=== PATIENT | male | born 1990 | race Caucasian/White ===

== ENCOUNTER 2020-01-24 10:09 | Inpatient (IN) | payer OTHER ==
[2020-01-24 10:59] VITALS: BMI 19.8
--- NOTE | 2020-01-24 11:08 | BHS.RME ---
Substance Use & Tx History - Substance Use History Benzodiazepines Substance amount: 10mg Frequency of use: Daily Substance route: Oral Date of Last Use: 01/22/20 Heroin Substance amount: 20 bags Frequency of use: Daily Substance route: Injection (ex: intravenous or skin popping) Date of Last Use: 01/24/20 - Last Treatment Date of last treatment: 2014 at the [facility] Where was last treatment: Detox Physical/Psych/Mental Status - Behavior General Behavior: Increased activity (restlessness, agitation) Eye Contact: Decreased Other Behaviors: Mannerisms - Cooperativeness Cooperativeness: Cooperative - Thinking Thought Processes: Tight, Logical Thought content: Future oriented - Physical Health Problems Is patient presently having any pain?: Yes Does patient presently have any injuries (include location): No Does patient currently have a fever: No COWS - Scale Resting Pulse: 0= [place] 80 or Below Sweatin= Chills/Flushing Restless Observation: 3= Extraneous Movement Pupil Size: 1= Pupils >than Normal Bone or Joint Aches: 2= Severe Diffuse Aches Runny Nose/ Eye Tearin= Runny Nose/Eyes GI Upset > 30mins: 2= Nausea/Diarrhea Tremor Observation: 4= Gross Tremor/Twitching Yawning Observation: 1= 1-2x During Session Anxiety or Irritability: 2=Irritable/Anxious Goose Flesh Skin: 3=Piloerection COWS Score: 21 CIWA Nausea/Vomitin Muscle Tremors: 2 Anxiety: 3 Agitation: 3 Paroxysmal Sweats: 3 Orientation: 0-Oriented Tacttile Disturbances: 1-Very Mild Itch/Numbness Auditory Disturbances: 1-Very Mild Visual Disturbances: 1-Very Mild Sensitivity Headache: 2-Mild CIWA-Ar Total Score: 18 Treatment Recommendation - Level of Care Level of Care: Opioid Treatment Program (OTP)
[2020-01-24] MEDS ORDERED: MENTHOL/PHENOL 1 EACH UD MM PRN (11:16)
[2020-01-24] MEDS ORDERED: BISMUTH SUBSALICYLATE 524 MG/30 ML UD PO PRN (11:16)
[2020-01-24] MEDS ORDERED: MAG HYDROX/AL HYDROX/SIMETH 30 ML UNIT-DOSE CUP PO PRN (11:16)
[2020-01-24] MEDS ORDERED: IBUPROFEN 400 MG TABLET (FP) PO PRN (11:16)
[2020-01-24] MEDS ORDERED: NALOXONE HCL 0.4 MG/ML VIAL IM PRN (11:16)
[2020-01-24] MEDS ORDERED: ACETAMINOPHEN 325 MG TABLET (FP) PO PRN ×2 (11:16)
[2020-01-24] MEDS ORDERED: cloNIDine HCL 0.1 MG TABLET PO PRN (11:16)
[2020-01-24] MEDS ORDERED: METHADONE HCL 10 MG TABLET (FOR DETOX USE ONLY) PO ONE (11:16)
[2020-01-24] MEDS ORDERED: MAGNESIUM CITRATE 300 ML BOTTLE PO PRN (11:16)
[2020-01-24] MEDS ORDERED: MAGNESIUM HYDROX 2400MG/30ML ORAL SUSPENSION 30 ML CUP PO PRN (11:16)
[2020-01-24] MEDS ORDERED: diazePAM 5 MG TABLET PO ONE (11:16)
--- NOTE | 2020-01-24 11:16 | HP ---
COWS - Scale Resting Pulse: 0= [place] 80 or Below Sweatin= Chills/Flushing Restless Observation: 3= Extraneous Movement Pupil Size: 1= Pupils >than Normal Bone or Joint Aches: 2= Severe Diffuse Aches Runny Nose/ Eye Tearin= Runny Nose/Eyes GI Upset > 30mins: 2= Nausea/Diarrhea Tremor Observation: 4= Gross Tremor/Twitching Yawning Observation: 1= 1-2x During Session Anxiety or Irritability: 2=Irritable/Anxious Goose Flesh Skin: 3=Piloerection COWS Score: 21 CIWA Score Nausea/Vomitin Muscle Tremors: 2 Anxiety: 3 Agitation: 3 Paroxysmal Sweats: 3 Orientation: 0-Oriented Tacttile Disturbances: 1-Very Mild Itch/Numbness Auditory Disturbances: 1-Very Mild Visual Disturbances: 1-Very Mild Sensitivity Headache: 2-Mild CIWA-Ar Total Score: 18 - Admission Criteria [facility]ASAS Guidelines: Admission for Medically Managed Detox: Requires at least one of the followin. CIWA greater than 12 2. Seizures within the past 24 hours 3. Delirium tremens within the past 24 hours 4. Hallucinations within the past 24 hours 5. Acute intervention needed for co occurring medical disorder 6. Acute intervention needed for co occurring psychiatric disorder 7. Severe withdrawal that cannot be handled at a lower level of care (continued vomiting, continued diarrhea, abnormal vital signs) requiring intravenous medication and/or fluids 8. Patient presents the following: CIWA greater than 12 Admission Criteria Met: Admission criteria met Admitting History and Physical - Smoking History Smoking history: Current every day smoker Have you smoked in the past 12 months: Yes Aproximately how many cigarettes per day: 10 Admission ROS [facility] - [facility] Chief Complaint: I am here to better my life, to get off drugs and to be a better member of society Allergies/Adverse Reactions: Allergies Allergy/AdvReac Type Severity Reaction Status Date / Time baclofen Allergy Severe Hives Verified 01/24/20 10:54 naltrexone Allergy Severe Hives Verified 01/24/20 10:54 History of Present Illness: 29 year old man with heroin and benzo use presents for detox. This is his first time at [facility].He denies OD. Exam Limitations: No Limitations - Ebola screening Have you traveled outside of the country in the last 21 days: No Have you had contact with anyone from an Ebola affected area: No Have you been sick,other than usual withdrawal symptoms: No Do you have a fever: No - Review of Systems Constitutional: Chills, Loss of Appetite, Changes in sleep, Unintentional Wgt. Loss EENT: reports: Nose Congestion Respiratory: reports: No Symptoms reported Cardiac: reports: No Symptoms Reported GI: reports: Nausea, Poor Appetite, Abdominal cramping : reports: No Symptoms Reported Musculoskeletal: reports: Joint Pain, Muscle Pain, Muscle Weakness Integumentary: reports: Flushing, Sweating Neuro: reports: Headache, Tremors Endocrine: reports: No Symptoms Reported Hematology: reports: No Symptoms Reported Psychiatric: reports: No Sypmtoms Reported Other Systems: Reviewed and Negative Patient History - Patient Medical History Hx Anemia: No Hx Asthma: No Hx Chronic Obstructive Pulmonary Disease (COPD): No Hx Cancer: No Hx Cardiac Disorders: No Hx Hypertension: No Hx Hypercholesterolemia: No Hx Pacemaker: No HX Cerebrovascular Accident: No Hx Seizures: No Hx Dementia: No Hx Diabetes: No Hx Gastrointestinal Disorders: No Hx Liver Disease: No Hx Genitourinary Disorders: No Hx Sexually Transmitted Disorders: No Hx Renal Disease (ESRD): No Hx Thyroid Disease: No Hx Human Immunodeficiency Virus (HIV): No Hx Hepatitis C: No Hx Depression: No Hx Suicide Attempt: No Hx Bipolar Disorder: No Hx Schizophrenia: No - Patient Surgical History Past Surgical History: No - PPD History Previous Implant?: Yes Documented Results: Negative w/o proof Implanted On Prior [facility] Admission?: No PPD to be Administered?: Yes - Smoking Cessation Smoking history: Current every day smoker Have you smoked in the past 12 months: Yes Aproximately how many cigarettes per day: 10 Hx Chewing Tobacco Use: No Initiated information on smoking cessation: Yes 'Breaking Loose' booklet given: 01/24/20 - Substances abused Heroin Substance route: Injection Frequency: Daily Amount used: 20 bags Age of first use: 19 Date of last use: 01/23/20 Alprazolam (Xanax) Substance route: Oral Frequency: Daily Amount used: 4mg and up Age of first use: 28 Date of last use: 01/22/20 Cocaine Substance route: Injection Frequency: 1-3 times last 30 days Amount used: 1/2 gram Age of first use: 26 Date of last use: 01/22/20 Marijuana/Hashish Substance route: Smoking Frequency: 1-3 times last 30 days Amount used: 2 puffs of joint Age of first use: 19 Date of last use: 01/22/20 Admission Physical Exam [facility] - Vital Signs Vital Signs: Vital Signs - 24 hr 01/24/20 10:54 Temperature 98.6 F Pulse Rate 71 Respiratory 20 Rate Blood Pressure 103/66 - Physical General Appearance: Yes: Mild Distress, Tremorous, Sweating HEENTM: Yes: Hearing grossly Normal, Normal ENT Inspection, Normocephalic, Normal Voice Respiratory: Yes: Chest Non-Tender, Lungs Clear, Normal Breath Sounds, No Respiratory Distress, No Accessory Muscle Use Neck: Yes: No masses,lesions,Nodules, Supple Breast: Yes: Breast Exam Deferred Cardiology: Yes: Regular Rhythm, Regular Rate Abdominal: Yes: Normal Bowel Sounds, Soft Genitourinary: Yes: Within Normal Limits Back: Yes: Normal Inspection Musculoskeletal: Yes: full range of Motion, Gait Steady, Pelvis Stable Extremities: Yes: Normal Capillary Refill, Non-Tender, Tremors Neurological: Yes: stock checkerer II-XII NML intact, Fully Oriented, Alert, Normal Mood/Affect, Normal Response Integumentary: Yes: Clammy, Rash (diffuse) Lymphatic: Yes: Within Normal Limits - Diagnostic (1) Benzodiazepine withdrawal Current Visit: Yes Status: Acute Qualifiers: Complication of substance-induced condition: uncomplicated Qualified Code(s): F13.230 - Sedative, hypnotic or anxiolytic dependence with withdrawal, uncomplicated (2) Opioid dependence with withdrawal Current Visit: Yes Status: Acute (3) Nicotine dependence with withdrawal Current Visit: Yes Status: Acute Qualifiers: Nicotine product type: cigarettes Qualified Code(s): F17.213 - Nicotine dependence, cigarettes, with withdrawal (4) Cocaine abuse Current Visit: Yes Status: Chronic (5) Marijuana abuse Current Visit: Yes Status: Chronic Cleared for Admission [facility] - Detox or Rehab [facility] Level of Care: Medically Managed Detox Regimen/Protocol: Methadone/Valium Claeared for Rehab Admission: No Breathalyzer - Breathalyzer Breathalyzer: 0 Urine Drug Screen - Test Device Lot number: [id number] Expiration date: 03/14/21 - Control Is test valid?: Yes - Results Drug screen NEGATIVE: No Urine drug screen results: THC-Marijuana, TRISHA-Cocaine, FEN-Fentanyl, MOP- Opiates, MTD-Methadone Inpatient Rehab Admission - Rehab Decision to Admit Inpatient rehab admission?: No
[2020-01-24] MEDS: diazePAM 5 MG TABLET PO SCH ×2 (14:43→21:04)
[2020-01-24] MEDS: diazePAM 5 MG TABLET PO PRN (16:58)
[2020-01-24] MEDS: METHOCARBAMOL 500 MG TABLET PO PRN (21:04)
[2020-01-24] MEDS: THIAMINE HCL 100 MG TABLET (FP) PO SCH (21:04)
[2020-01-24] MEDS: MELATONIN 5 MG TABLETS PO SCH (21:04)
[2020-01-25] MEDS: diazePAM 5 MG TABLET PO SCH ×3 (05:15→21:32)
[2020-01-25] MEDS ORDERED: METHADONE HCL 10 MG TABLET (FOR DETOX USE ONLY) ONE (09:02)
[2020-01-25] MEDS ORDERED: METHADONE HCL 5 MG TABLET (FOR DETOX USE ONLY) ONE (09:03)
--- NOTE | 2020-01-25 09:43 | EKG ---
Test Reason : Blood Pressure : / mmHG Vent. Rate : 064 BPM Atrial Rate : 064 BPM P-R Int : 138 ms QRS Dur : 090 ms QT Int : 402 ms P-R-T Axes : 000 088 080 degrees QTc Int : 414 ms NORMAL SINUS RHYTHM ST ELEVATION, CONSIDER EARLY REPOLARIZATION BORDERLINE ECG NO PREVIOUS ECGS AVAILABLE Confirmed by Sara Villar ([id number]) on 01/25/2020 9:42:54 AM Referred By: Confirmed By:Sara Villar
[2020-01-25] MEDS ORDERED: METHADONE (DETOX) 20 MG, METHADONE (DETOX) 5 MG PO ONE (10:00)
[2020-01-25] MEDS: PRENATAL VITAMINS W/ FOLIC ACID TABLET (FP) PO SCH (10:03)
[2020-01-25] MEDS: NICOTINE 7 MG/24 HOURS TOPICAL PATCH TD SCH (10:04)
[2020-01-25] MEDS: NICOTINE POLACRILEX 2 MG GUM BUC PRN ×2 (10:04→16:57)
--- NOTE | 2020-01-25 10:12 | PN ---
S CIWA - CIWA Score Nausea/Vomitin-Mild Nausea/No Vomiting Muscle Tremors: 4-Moderate,w/Arms Extend Anxiety: 4-Mod. Anxious/Guarded Agitation: 2 Paroxysmal Sweats: 1-Minimal Palms Moist Orientation: 0-Oriented Tacttile Disturbances: 0-None Auditory Disturbances: 0-None Visual Disturbances: 2-Mild Sensitivity Headache: 2-Mild CIWA-Ar Total Score: 16 BHS COWS - Scale Resting Pulse: 0= [place] 80 or Below Sweatin= Chills/Flushing Restless Observation: 0= Sits Still Pupil Size: 1= Pupils >than Normal Bone or Joint Aches: 2= Severe Diffuse Aches Runny Nose/ Eye Tearin= None GI Upset > 30mins: 2= Nausea/Diarrhea Tremor Observation of Outstretched Hands: 2= Slight Tremor Visible Yawning Observation: 0= None Anxiety or Irritability: 2=Irritable/Anxious Goose Flesh Skin: 3=Piloerection COWS Score: 13 S Progress Note (SOAP) Subjective: 29 years old male admitted on 01/24/20 for benzo and opiate withdrawal sx management treating with valium and methadone detox regiments feeling tired limited breakfast consumption ensure 120 ml po tid with meals resting in bed limited conversation with staff Objective: 01/25/20 10:14 Vital Signs - 24 hr 01/24/20 01/24/20 01/24/20 10:54 12:30 17:21 Temperature 98.6 F 97.1 F L 97.5 F L Pulse Rate 71 66 60 Respiratory 20 8 L 16 Rate Blood Pressure 103/66 101/64 109/70 O2 Sat by Pulse 97 99 Oximetry (%) 01/24/20 01/25/20 01/25/20 20:39 06:06 08:34 Temperature 97.4 F L 97.2 F L 96.9 F L Pulse Rate 61 53 L 64 Respiratory 18 18 18 Rate Blood Pressure 101/64 99/57 L 97/61 O2 Sat by Pulse 100 99 Oximetry (%) 01/25/20 10:15 cbc + camp cancelled reorder cbc + camp Assessment: 01/25/20 10:16 benzo and opiate withdrawal Plan: valium and methadone regiments
[2020-01-25] MEDS: diazePAM 5 MG TABLET PO PRN (16:57)
[2020-01-25] MEDS: MELATONIN 5 MG TABLETS PO SCH (21:32)
[2020-01-25] MEDS: THIAMINE HCL 100 MG TABLET (FP) PO SCH (21:32)
[2020-01-25] MEDS: METHOCARBAMOL 500 MG TABLET PO PRN (21:33)
[2020-01-26] MEDS: METHOCARBAMOL 500 MG TABLET PO PRN ×2 (05:14→10:14)
[2020-01-26] MEDS ORDERED: diazePAM 5 MG TABLET PO SCH (06:00)
[2020-01-26 09:13] VITALS: BP 111/67; PULSE 63; TEMP 97.1
--- NOTE | 2020-01-26 09:39 | PN ---
S CIWA - CIWA Score Nausea/Vomitin-Mild Nausea/No Vomiting Muscle Tremors: 2 Anxiety: 3 Agitation: 1-Slight > Activity Paroxysmal Sweats: 2 Orientation: 0-Oriented Tacttile Disturbances: 1-Very Mild Itch/Numbness Auditory Disturbances: 0-None Visual Disturbances: 0-None Headache: 2-Mild CIWA-Ar Total Score: 12 BHS COWS - Scale Resting Pulse: 0= [place] 80 or Below Sweatin= Chills/Flushing Restless Observation: 0= Sits Still Pupil Size: 1= Pupils >than Normal Bone or Joint Aches: 2= Severe Diffuse Aches Runny Nose/ Eye Tearin= Runny Nose/Eyes GI Upset > 30mins: 2= Nausea/Diarrhea Tremor Observation of Outstretched Hands: 0= None Yawning Observation: 2= >3x During Session Anxiety or Irritability: 2=Irritable/Anxious Goose Flesh Skin: 0=Smooth Skin COWS Score: 12 S Progress Note (SOAP) Subjective: 29 years old male admitted on 01/24/20 for benzo and opiate withdrawal sx management treating with valium and methadone detox regiments sweating reports diarrhea x 1 refuses imodium good skin turgor moist oral mucous membranes joint aches offer tylenal and motrin prn Objective: 01/26/20 09:39 Vital Signs - 24 hr 01/25/20 01/25/20 01/25/20 12:39 14:06 16:47 Temperature 98.7 F 98.0 F Pulse Rate 57 L 55 L Respiratory 18 18 Rate Blood Pressure 103/63 96/65 O2 Sat by Pulse 100 Oximetry (%) 01/25/20 01/26/20 01/26/20 20:50 05:42 08:52 Temperature 98.0 F 97.5 F L 97.1 F L Pulse Rate 61 62 63 Respiratory 18 18 18 Rate Blood Pressure 104/69 101/63 111/67 O2 Sat by Pulse 100 100 Oximetry (%) Laboratory Tests 01/24/20 11:25 COVID-19 ([facility]) Not detected 01/26/20 09:40 lab pending Assessment: 01/26/20 09:40 benzo and opiate withdrawal Plan: valium and methadone regiments
[2020-01-26] MEDS ORDERED: METHADONE HCL 10 MG TABLET (FOR DETOX USE ONLY) PO ONE (10:00)
[2020-01-26] MEDS: diazePAM 5 MG TABLET PO PRN (10:09)
[2020-01-26] MEDS: PRENATAL VITAMINS W/ FOLIC ACID TABLET (FP) PO SCH (10:10)
[2020-01-26] MEDS: NICOTINE 7 MG/24 HOURS TOPICAL PATCH TD SCH (10:11)
[2020-01-26 11:54] LABS: HEMATOCRIT 42.1 % (35.4-49); HEMOGLOBIN 14.1 GM/dL (11.7-16.9); MCH 28.4 pg (25.7-33.7); MCHC 33.5 g/dl (32.0-35.9); MEAN CELL VOLUME 84.9 fl (80-96); MEAN PLT VOLUME 7.7 fl (7.5-11.1); PLATELET COUNT 184 K/MM3 (134-434); RBC 4.95 M/mm3 (4.00-5.60); RDW 14.6 % (11.9-15.9); WHITE BLOOD COUNT 5.8 K/mm3 (4.0-10.0)
[2020-01-26 12:03] LABS: ALBUMIN 3.4 g/dl (3.4-5.0); BLOOD UREA NITROGEN 12.5 mg/dL (7-18); CALCIUM 9.1 mg/dL (8.5-10.1); CREATININE 0.8 mg/dL (0.55-1.3); POTASSIUM 4.1 mmol/L (3.5-5.1); TOT PROT 7.1 g/dl (6.4-8.2)
--- NOTE | 2020-01-26 12:14 | DS ---
[facility] Detox Discharge Summary Admission Date: 01/24/20 Discharge Date: 01/26/20 - History Present History: Opioid Dependence, Sedative Dependence Additional Comments: 29 years old male admitted on 01/24/20 for benzo and opiate withdrawal sx management treated with valium and methadone detox regiments received valium 5 mg around 5 am and 10 mg around 10 am today robaxin 500mg around 10 am and methadone 20mg around 10 am mr witt insists to leave the detox unit today that went [place] detox years ago and drug free x 5 years recent relapse first detox admission at [facility] mr witt prefers to terminate voluntary in patient detox at the [facility] and return to [place] detox where assisted mr witt remain drug free for "years" his friends is taking him to [place] new mr witt is alert oriented x 3 speech clearly coherently ambulating with steady gaits mr witt states that his friend is waiting for him downstairs and brining him to [place] detox or rehab where helping him maintain drug free mr witt understands that valium ended on 01/27/20 that returning to [place] for benzo detox cardiac s1s2 regular rate rhythm respiratory clear lung sounds bilaterally on auscultation extremities full range of motion Pertinent Past History: time for discharge 52 minutes treatment team met with the patient discuss the benefits of valium and methadone regiments completion mr witt prefers completing detox at [place] - Physical Exam Results Vital Signs: Vital Signs Temperature 97.1 F L 01/26/20 08:52 Pulse Rate 63 01/26/20 08:52 Respiratory Rate 18 01/26/20 08:52 Blood Pressure 111/67 01/26/20 08:52 O2 Sat by Pulse Oximetry (%) 100 01/26/20 05:42 Pertinent Admission Physical Exam Findings: benzo and opaite withdrawal Laboratory Tests 01/24/20 01/26/20 01/26/20 11:25 08:15 08:15 WBC 5.8 RBC 4.95 Hgb 14.1 Hct 42.1 MCV 84.9 MCH 28.4 MCHC 33.5 RDW 14.6 Plt Count 184 MPV 7.7 Sodium 140 Potassium 4.1 Chloride 108 H Carbon Dioxide 25 Anion Gap 7 L BUN 12.5 Creatinine 0.8 Est GFR (CKD-EPI)AfAm 137.96 Est GFR (CKD-EPI)NonAf 119.03 Random Glucose 86 Calcium 9.1 Total Bilirubin 1.0 AST 102 H ALT 186 H Alkaline Phosphatase 74 Total Protein 7.1 Albumin 3.4 COVID-19 ([facility]) Not detected ast elevation [facility] - Treatment Hospital Course: Detox Protocol Followed, Detoxed Safely, Responded well, Discha rged Condition Good, Rehab Referral Accepted Patient [facility] - Medication Discharge Medications: Ambulatory Orders Naloxone HCl [Narcan] 4 mg NS ASDIR PRN #1 spray 01/26/20 - Diagnosis (1) Benzodiazepine withdrawal Current Visit: Yes Status: Acute Qualifiers: Complication of substance-induced condition: uncomplicated Qualified Code(s): F13.230 - Sedative, hypnotic or anxiolytic dependence with withdrawal, uncomplicated (2) Nicotine dependence with withdrawal Current Visit: Yes Status: Acute Qualifiers: Nicotine product type: cigarettes Qualified Code(s): F17.213 - Nicotine dependence, cigarettes, with withdrawal (3) Opioid dependence with withdrawal Current Visit: Yes Status: Acute - AMA Did Patient Leave Against Medical Advice: No CIWA Score - CIWA Score Nausea/Vomitin-No Nausea/No Vomiting Muscle Tremors: 2 Anxiety: 3 Agitation: 1-Slight > Activity Paroxysmal Sweats: 1-Minimal Palms Moist Orientation: 0-Oriented Tacttile Disturbances: 1-Very Mild Itch/Numbness Auditory Disturbances: 0-None Visual Disturbances: 0-None Headache: 2-Mild CIWA-Ar Total Score: 10 COWS (PN) - Opiate Withdrawal Resting Pulse: 0= [place] 80 or Below Sweatin= Chills/Flushing Restless Observation: 0= Sits Still Pupil Size: 1= Pupils >than Normal Bone or Joint Aches: 1= Mild Discomfort Runny Nose/ Eye Tearin= Nasal Congestion GI Upset > 30mins: 1= Stomach Cramp Tremor Observation of Outstretched Hands: 1= Tremor Duncan, Not Seen Yawning Observation: 1= 1-2x During Session Anxiety or Irritability: 1=Feels Anxious/Irritable Goose Flesh Skin: 0=Smooth Skin COWS Score: 8
[2020-01-27] MEDS ORDERED: diazePAM 5 MG TABLET PO ONE (06:00)
[2020-01-27] MEDS ORDERED: METHADONE (DETOX) 10 MG, METHADONE (DETOX) 5 MG PO ONE (10:00)
[2020-01-28] MEDS ORDERED: METHADONE HCL 10 MG TABLET (FOR DETOX USE ONLY) PO ONE (10:00)
[2020-01-29] MEDS ORDERED: METHADONE HCL 5 MG TABLET (FOR DETOX USE ONLY) PO ONE (06:00)
== END 2020-01-26 12:01 | disposition home or self-care (01) | DRG 773 ==
LOC: YASAS 10:09 → Y3N 11:20
PROVIDERS: ADMIT Allergy & Immunology; ATTEND Allergy & Immunology
PROC: HZ2ZZZZ Detoxification Services for Substance Abuse Treatment (ICD-10-PCS; principal; 2020-01-24)
DX: F11.23 Opioid dependence with withdrawal (principal); F13.230 Sedative, hypnotic or anxiolytic dependence with withdrawal, uncomplicated; F14.10 Cocaine abuse, uncomplicated; F12.10 Cannabis abuse, uncomplicated; F17.213 Nicotine dependence, cigarettes, with withdrawal; R74.0 Nonspecific elevation of levels of transaminase and lactic acid dehydrogenase [LDH]; Z88.8 Allergy status to other drugs, medicaments and biological substances
CPT/HCPCS: 36415; 80053; 85027; 86780; 93005; 93010; U0003